=== PATIENT | male | born 1950 | race Hispanic/Latino ===

== ENCOUNTER 2023-10-13 18:22 | Inpatient (IN) | payer MEDICARE, OTHER ==
[2023-10-13 19:12] LABS: #Basophils 0.1 thou/uL (0.0-0.2); #Eosinphils 0.1 thou/uL (0.0-0.7); #Monocytes 0.8 thou/uL (0.11-0.59); #Neutrophils 6.1 thou/uL (1.40-6.50); %Basophils 0.6 % (0.0-1.0); %Eosinophils 1.2 % (0.0-10.0); %Lymphocytes 13.7 % (21.0-51.0); %Monocytes 9.4 % (0.0-10.0); %Neutrophils 74.9 % (42.0-75.0); Hematocrit 42.1 % (42.0-52.0); Hemoglobin 13.8 g/dL (14.0-18.0); Mean Corpuscular HGB CONC 32.8 g/dL (32.0-36.0); Mean Corpuscular Hemoglobin 31.5 pg (27.0-31.0); Mean Corpuscular Volume 96.1 fl (78.0-98.0); Mean Platelet Volume 10.4 fL (7.4-10.4); Platelet Count 298 10x3/uL (130-400); Red Blood Cell (RBC) Count 4.38 mill/uL (4.70-6.10); White Blood Cell (WBC) Count 8.2 10x3/uL (4.8-10.8)
[2023-10-13 19:36] LABS: ALT (SGPT) 22 U/L (8-55); AST (SGOT) 27 U/L (5-34); Albumin 4.3 g/dL (3.4-4.8); Alkaline Phosphatase 63 U/L (40-110); Anion Gap 11 mmol/L (10-20); BUN (Urea Nitrogen) 17 mg/dL (8.4-25.7); Bilirubin, Total 1.2 mg/dL (0.2-1.2); Calc. Creatinine Clearance 0 mL/min (70-130); Calcium 9.3 mg/dL (7.8-10.44); Carbon Dioxide 27 mmol/L (23-31); Chloride 104 mmol/L (98-107); Estimated GFR 62; Globulin 3.6 g/dL (2.4-3.5); Glucose 126 mg/dL (83-110); Potassium 4.2 mmol/L (3.5-5.1); Protein, Total 7.9 g/dL (5.8-8.1); Sodium 138 mmol/L (136-145)
[2023-10-13 21:47] LABS: Troponin I 0.135 ng/mL (< 0.028)
[2023-10-13] MEDS ORDERED: Aspirin Chewable 81 MG TAB ONE (22:24)
[2023-10-13] MEDS ORDERED: Acetaminophen 325 MG TAB PO PRN (22:45)
[2023-10-13] MEDS ORDERED: Acetaminophen 650 MG Suppository PR PRN (22:45)
[2023-10-13] MEDS ORDERED: Lisinopril 20 MG TAB ONE (23:10)
[2023-10-13] MEDS ORDERED: Furosemide 40 MG (4 mL) VIAL ONE (23:10)
[2023-10-13] MEDS: Furosemide 40 MG (4 mL) VIAL SLOW IVP SCH (23:14)
[2023-10-13] MEDS: Lisinopril 20 MG TAB PO SCH (23:14)
[2023-10-13] MEDS: Simvastatin 10 MG TAB PO SCH (23:43)
[2023-10-14 04:38] LABS: #Eosinphils 0.1 thou/uL (0.0-0.7); #Monocytes 0.6 thou/uL (0.11-0.59); #Neutrophils 4.6 thou/uL (1.40-6.50); %Basophils 0.6 % (0.0-1.0); %Eosinophils 1.4 % (0.0-10.0); %Lymphocytes 16.2 % (21.0-51.0); %Monocytes 9.5 % (0.0-10.0); Hematocrit 44.2 % (42.0-52.0); Hemoglobin 14.6 g/dL (14.0-18.0); Mean Corpuscular Hemoglobin 31.6 pg (27.0-31.0); Mean Corpuscular Volume 95.7 fl (78.0-98.0); Mean Platelet Volume 10.8 fL (7.4-10.4); Platelet Count 309 10x3/uL (130-400); RBC Distribution Width 15.2 % (11.5-14.5); Red Blood Cell (RBC) Count 4.62 mill/uL (4.70-6.10); White Blood Cell (WBC) Count 6.4 10x3/uL (4.8-10.8)
[2023-10-14 05:16] LABS: Anion Gap 12 mmol/L (10-20); BUN (Urea Nitrogen) 16 mg/dL (8.4-25.7); Calc. Creatinine Clearance 70 mL/min (70-130); Calcium 9.3 mg/dL (7.8-10.44); Carbon Dioxide 27 mmol/L (23-31); Chloride 103 mmol/L (98-107); Estimated GFR 62; Glucose 112 mg/dL (83-110); Magnesium 1.5 mg/dL (1.6-2.6); Potassium 4.2 mmol/L (3.5-5.1); Sodium 138 mmol/L (136-145)
[2023-10-14 05:20] LABS: Troponin I 0.132 ng/mL (< 0.028)
[2023-10-14 05:33] LABS: Thyroid Stimulating Hormone 6.0029 uIU/mL (0.35-4.94)
[2023-10-14] MEDS ORDERED: Furosemide 40 MG (4 mL) VIAL ONE (06:09)
[2023-10-14 09:19] LABS: Free T4 (Free Thyroxine) 1.26 ng/dL (0.70-1.48)
[2023-10-14 09:25] LABS: Troponin I 0.131 ng/mL (< 0.028)
[2023-10-14] MEDS: Aspirin 81 mg Enteric Coated Tablet PO SCH (11:22)
[2023-10-14] MEDS: Alogliptin 25 MG TAB PO SCH (11:22)
[2023-10-14] MEDS: Enoxaparin 40 MG (0.4 mL) SYRINGE SC SCH (11:23)
[2023-10-14] MEDS: Lisinopril 20 MG TAB PO SCH (11:23)
[2023-10-14] MEDS: Furosemide 40 MG (4 mL) VIAL SLOW IVP SCH (11:25)
[2023-10-14] MEDS: Magnesium 2 GM/50 ML(in water) 2 GM in Premix 1 BAG IVPB SCH (13:33)
[2023-10-14 17:46] VITALS: BMI 31.5
[2023-10-14] MEDS: Simvastatin 10 MG TAB PO SCH (20:18)
[2023-10-15 06:29] LABS: Anion Gap 15 mmol/L (10-20); BUN (Urea Nitrogen) 22 mg/dL (8.4-25.7); Calc. Creatinine Clearance 54 mL/min (70-130); Calcium 8.8 mg/dL (7.8-10.44); Carbon Dioxide 26 mmol/L (23-31); Cardiac Risk 2.8 (Less than 4.5); Chloride 99 mmol/L (98-107); Cholesterol 125 mg/dl (< 200 Desired); Estimated GFR 45; Glucose 113 mg/dL (83-110); HDL Cholesterol 44 mg/dL (>60 Neg Risk); LDL Cholesterol, Calculated 66 mg/dL; Magnesium 1.6 mg/dL (1.6-2.6); Potassium 3.4 mmol/L (3.5-5.1); Sodium 137 mmol/L (136-145); Triglycerides 74 mg/dL (Less than 150)
[2023-10-15] MEDS: Carvedilol 3.125 MG TAB PO SCH (08:56)
[2023-10-15] MEDS: Potassium Chloride 20 MEQ TAB PO SCH (08:57)
[2023-10-15] MEDS ORDERED: Communication Order-Pharmacy FS SCH (09:45)
[2023-10-15] MEDS: Atorvastatin Calcium 40 MG TAB PO SCH (20:54)
[2023-10-16 05:35] LABS: Hemoglobin A1c 7.1 % (4.0-6.0)
[2023-10-16] MEDS: Sodium Chloride 0.9% 1,000 ML IV SCH ×2 (05:51→08:20)
[2023-10-16] MEDS: Sacubitril 49 MG/Valsartan 51 MG TABLET PO SCH (06:09)
[2023-10-16] MEDS ORDERED: Nitroglycerin 50 MG/250 ML BOT 0 ML ONE (06:13)
[2023-10-16] MEDS ORDERED: Heparin 10,000 UNITS/ 10 ML VIAL ONE (06:13)
[2023-10-16] MEDS ORDERED: fentaNYL 50 mcg/mL 1 mL Vial ONE (06:13)
[2023-10-16] MEDS ORDERED: Midazolam HCl 2 mg/2 ml Vial ONE (06:13)
[2023-10-16 06:26] LABS: Anion Gap 17 mmol/L (10-20); BUN (Urea Nitrogen) 27 mg/dL (8.4-25.7); Calc. Creatinine Clearance 59 mL/min (70-130); Calcium 9.4 mg/dL (7.8-10.44); Carbon Dioxide 26 mmol/L (23-31); Chloride 100 mmol/L (98-107); Estimated GFR 50; Glucose 128 mg/dL (83-110); Potassium 4.7 mmol/L (3.5-5.1); Sodium 138 mmol/L (136-145)
[2023-10-16] MEDS ORDERED: Protamine Sulfate 50 MG/5 ML VIAL ONE (07:32)
[2023-10-16] MEDS ORDERED: Nitroglycerin 0.4 MG TAB (25 Tab Bottle) SL PRN (07:38)
[2023-10-16] MEDS ORDERED: Acetaminophen/Codeine 30-300mg Tablet PO PRN ×2 (07:38)
[2023-10-16] MEDS ORDERED: Sodium Chloride 0.9% 200 ML IV PRN (07:38)
[2023-10-16] MEDS ORDERED: Iopamidol 370 76% 100 ML VIAL ONE (08:23)
[2023-10-16] MEDS ORDERED: Sacubitril 49 MG/Valsartan 51 MG TABLET PO SCH (09:00)
[2023-10-16] MEDS ORDERED: Furosemide 40 MG (4 mL) VIAL SLOW IVP SCH (09:00)
[2023-10-16] MEDS: Nitroglycerin 2% Ointment 1 INCH/1 GM Packet TOP SCH (09:27)
[2023-10-16] MEDS ORDERED: Dextrose 50% Abboject 50 ML SYRINGE SLOW IVP PRN (12:33)
[2023-10-16] MEDS ORDERED: Dextrose 5% in Water 1,000 ML IV PRN (12:33)
[2023-10-16] MEDS ORDERED: Glucagon 1 MG/ML KIT IM PRN (12:33)
[2023-10-16] MEDS: HumaLOG 300 UNITS/3 ML VIAL SC PRN (12:50)
[2023-10-17 04:25] VITALS: TEMP 97.5
[2023-10-17 05:23] LABS: Anion Gap 10 mmol/L (10-20); BUN (Urea Nitrogen) 29 mg/dL (8.4-25.7); Calc. Creatinine Clearance 63 mL/min (70-130); Calcium 8.3 mg/dL (7.8-10.44); Carbon Dioxide 26 mmol/L (23-31); Chloride 104 mmol/L (98-107); Estimated GFR 52; Glucose 125 mg/dL (83-110); Potassium 3.9 mmol/L (3.5-5.1); Sodium 136 mmol/L (136-145)
[2023-10-17 08:00] VITALS: BP 137/81
[2023-10-17] MEDS: Empagliflozin 10 MG TAB PO SCH (08:07)
[2023-10-17] MEDS: Enoxaparin 40 MG (0.4 mL) SYRINGE SC SCH (08:07)
== END 2023-10-17 10:35 | disposition home or self-care (01) | DRG 280 ==
LOC: SUATTDRO 18:22 → ERS 18:22 → ERHOLD 22:54 → 2SW 10-14 11:01 → OBSVTOIN 10-14 12:38
PROVIDERS: ADMIT Family Medicine; ATTEND Nurse Practitioner Family
PROC: 4A023N7 Measurement of Cardiac Sampling and Pressure, Left Heart, Percutaneous Approach (ICD-10-PCS; principal; 2023-10-16)
PROC: B2111ZZ Fluoroscopy of Multiple Coronary Arteries using Low Osmolar Contrast (ICD-10-PCS; 2023-10-16)
PROC: B2151ZZ Fluoroscopy of Left Heart using Low Osmolar Contrast (ICD-10-PCS; 2023-10-16)
DX: I11.0 Hypertensive heart disease with heart failure (principal); I21.A1 Myocardial infarction type 2; I50.23 Acute on chronic systolic (congestive) heart failure; N17.9 Acute kidney failure, unspecified; E11.9 Type 2 diabetes mellitus without complications; E78.00 Pure hypercholesterolemia, unspecified; Z79.899 Other long term (current) drug therapy; Z79.84 Long term (current) use of oral hypoglycemic drugs; Z79.82 Long term (current) use of aspirin; Z82.49 Family history of ischemic heart disease and other diseases of the circulatory system; I25.10 Atherosclerotic heart disease of native coronary artery without angina pectoris; E87.6 Hypokalemia; G47.33 Obstructive sleep apnea (adult) (pediatric); E03.8 Other specified hypothyroidism
CPT/HCPCS: 36415; 36416; 71046; 80048; 80053; 80061; 83036; 83735; 83880; 84439; 84443; 84484; 85025; 85347; 93005; 93010; 93306; 93454; 93455; 93798; 94760; 96372; 96374; 96376; 99152; 99153; C1769; G0378; J1644; J1650; J1940; J2250; J2720; J3010; J3475; J7050; Q9967

== ENCOUNTER 2023-11-04 08:30 | Inpatient (IN) | payer MEDICARE ==
[2023-11-04 08:51] VITALS: BMI 28.8
[2023-11-04 10:23] LABS: Hematocrit 49.6 % (38.8-50.0); Mean Corpuscular HGB CONC 32.3 g/dL (32.0-36.0); Mean Corpuscular Hemoglobin 30.4 pg (27.0-33.0); Mean Corpuscular Volume 94.1 fl (81.2-95.1); Mean Platelet Volume 11.3 fl (7.4-10.4); Platelet Count 303 10x3/uL (150-450); RBC Distribution Width 14.6 % (11.5-14.5); Red Blood Cell (RBC) Count 5.27 10x6/uL (4.32-5.72); White Blood Cell (WBC) Count 7.6 10x3/uL (3.5-10.5)
[2023-11-04 10:39] LABS: Anion Gap 16 mmol/L (10-20); BUN (Urea Nitrogen) 35 mg/dL (8.4-25.7); Calc. Creatinine Clearance 0 mL/min (70-130); Calcium 9.2 mg/dL (7.8-10.44); Carbon Dioxide 24 mmol/L (23-31); Chloride 102 mmol/L (98-107); Estimated GFR 53; Glucose 125 mg/dL (83-110); Sodium 137 mmol/L (136-145)
[2023-11-06] MEDS ORDERED: CEFAZOLIN 2 GM VIAL ONE (06:28)
[2023-11-06] MEDS ORDERED: Sodium Chloride 0.9% 100 ML ONE (06:28)
[2023-11-06] MEDS ORDERED: PHENYLEPHRINE-NS 100 MCG/ML 10 ML SYRINGE ONE (06:34)
[2023-11-06] MEDS ORDERED: Albumin 5% 500 ML ONE (06:35)
[2023-11-06] MEDS ORDERED: Heparin 10,000 UNITS/1 ML VIAL 30,000 UNITS in Sodium Chloride 0.9% 1,000 ML FS SCH (06:45)
[2023-11-06] MEDS ORDERED: Rocuronium Bromide 10 MG/ML (10ML VIAL) ONE (07:01)
[2023-11-06] MEDS ORDERED: PROPOFOL 20 ML ONE (07:01)
[2023-11-06] MEDS ORDERED: ePHEDrine Sulfate 50 MG/10 ML VIAL ONE (07:01)
[2023-11-06] MEDS ORDERED: Esmolol 100 MG/10 ML VIAL ONE (07:01)
[2023-11-06] MEDS ORDERED: Lidocaine 2% PF 5 ML VIAL ONE (07:01)
[2023-11-06] MEDS ORDERED: Norepinephrine 4 MG/4 ML VIAL ONE ×2 (07:01→07:02)
[2023-11-06] MEDS ORDERED: Lidocaine 2% PF 100 mg/5 ml Syringe ONE ×2 (07:01→07:41)
[2023-11-06] MEDS ORDERED: CEFAZOLIN 1 GM VIAL ONE (07:01)
[2023-11-06] MEDS ORDERED: Fentanyl 250 MCG/5 ML VIAL ONE (07:02)
[2023-11-06] MEDS ORDERED: Midazolam HCl 2 mg/2 ml Vial ONE (07:02)
[2023-11-06] MEDS ORDERED: Heparin 30,000 units/30 ml VIAL ONE (07:41)
[2023-11-06] MEDS ORDERED: Magnesium 5 GM/10 ML VIAL ONE (07:41)
[2023-11-06] MEDS ORDERED: Protamine Sulfate 250 MG/25 ML VIAL ONE (07:41)
[2023-11-06] MEDS ORDERED: Heparin 5,000 UNITS/ML VIAL ONE (07:41)
[2023-11-06] MEDS ORDERED: Sodium Bicarb 50 mEq/50 ML VIAL ONE (07:41)
[2023-11-06] MEDS ORDERED: Aminocaproic Acid 5 GM/20 ML VIAL ONE (07:41)
[2023-11-06] MEDS ORDERED: Papaverine 60 MG/2 ML VIAL ONE (07:41)
[2023-11-06] MEDS ORDERED: Cardioplegic Soln 1,000 ML BAG ONE (07:41)
[2023-11-06] MEDS ORDERED: Thrombin 5000 UNITS/5 ML VIAL ONE (07:41)
[2023-11-06] MEDS ORDERED: Vancomycin 1 GM VIAL ONE (07:41)
[2023-11-06] MEDS ORDERED: Mannitol 12.5 GM/50 ML ONE (07:41)
[2023-11-06] MEDS ORDERED: Potassium Chloride 60 mEq (30 mL) VIAL ONE (07:41)
[2023-11-06] MEDS ORDERED: Calcium Chloride 1 GM/10 ML Abboject SYRINGE ONE (07:41)
[2023-11-06] MEDS ORDERED: Sevoflurane 250 ML INH ANEST BOTTLE ONE (07:57)
[2023-11-06] MEDS ORDERED: Milrinone 10 MG/10 ML VIAL ONE (08:52)
[2023-11-06] MEDS ORDERED: Sodium Chloride 0.9% 250 ML 250 ML ONE (09:32)
[2023-11-06] MEDS ORDERED: Ondansetron PF 4 MG/2 ML Vial IVP PRN (10:42)
[2023-11-06] MEDS ORDERED: fentaNYL 50 mcg/mL 1 mL Vial SLOW IVP PRN (10:42)
[2023-11-06] MEDS ORDERED: Albumin 5% 12.5 GM (250 mL) BOT IVPB PRN ×2 (10:42)
[2023-11-06] MEDS ORDERED: NOREPINEPHRINE 8 MG/250 ML-D5W 250 ML IVPB PRN (10:42)
[2023-11-06] MEDS ORDERED: Promethazine HCl 25 MG/ML VIAL IM PRN (10:42)
[2023-11-06] MEDS ORDERED: Bisacodyl 10 MG SUPP PR PRN (10:42)
[2023-11-06] MEDS ORDERED: Bisacodyl 5 MG TAB PO PRN (10:42)
[2023-11-06] MEDS ORDERED: Hetastarch 6% 500 ML 500 ML IVPB PRN (10:42)
[2023-11-06] MEDS ORDERED: Guaifenesin DM 100-10/5 ML UDCUP PO PRN (10:42)
[2023-11-06] MEDS ORDERED: HYDROcodone/Acetaminophen 5/325 mg Tablet PO PRN (10:42)
[2023-11-06] MEDS ORDERED: Morphine 2 MG/ML VIAL SLOW IVP PRN (10:42)
[2023-11-06] MEDS ORDERED: Ipratropium/Albuterol 3 ML NEB NEB PRN (10:42)
[2023-11-06] MEDS ORDERED: Potassium Chloride 20 MEQ (100 mL) BAG IVPB PRN (10:42)
[2023-11-06] MEDS ORDERED: Nitroglycerin 50 MG/250 ML BOT 250 ML IVPB PRN (10:42)
[2023-11-06] MEDS ORDERED: DOPamine 400 MG/D5W 250 ML 250 ML IVPB PRN (10:42)
[2023-11-06] MEDS ORDERED: niCARdipine 25 MG in Sodium Chloride 0.9% 250 ML 250 ML IVPB PRN (10:42)
[2023-11-06] MEDS ORDERED: Mag-Al 1200 mg/1200 mg/30 ML UDCUP PO PRN (10:42)
[2023-11-06] MEDS ORDERED: Dextrose 5% in Water 1,000 ML IV PRN (10:45)
[2023-11-06] MEDS ORDERED: Glucagon 1 MG/ML KIT SC PRN (10:45)
[2023-11-06] MEDS ORDERED: Dextrose 50% Abboject 50 ML SYRINGE SLOW IVP PRN (10:45)
[2023-11-06] MEDS: HUMULIN R 100 UNITS in Sodium Chloride 0.9% 100 ML IVPB SCH (11:12)
[2023-11-06 11:18] LABS: #Basophils 0.1 thou/uL (0.0-0.2); #Eosinphils 0.2 thou/uL (0.0-0.7); #Monocytes 1.3 thou/uL (0.11-0.59); #Neutrophils 17.9 thou/uL (1.40-6.50); %Basophils 0.4 % (0.0-1.0); %Eosinophils 0.9 % (0.0-10.0); %Lymphocytes 7.8 % (21.0-51.0); %Neutrophils 84.2 % (42.0-75.0); Hematocrit 39.6 % (42.0-52.0); Hemoglobin 13.3 g/dL (14.0-18.0); Mean Corpuscular HGB CONC 33.6 g/dL (32.0-36.0); Mean Corpuscular Hemoglobin 31.6 pg (27.0-31.0); Mean Corpuscular Volume 94.1 fl (78.0-98.0); Platelet Count 202 10x3/uL (130-400); RBC Distribution Width 14.5 % (11.5-14.5); Red Blood Cell (RBC) Count 4.21 mill/uL (4.70-6.10); White Blood Cell (WBC) Count 21.2 10x3/uL (4.8-10.8)
[2023-11-06] MEDS: Post-Op Insulin Drip Protocol IVPB ONE (11:22)
[2023-11-06] MEDS: Lactated Ringer's 1,000 ML IV SCH (11:23)
[2023-11-06] MEDS: NOREPINEPHRINE 8 MG/250 ML-D5W 250 ML ONE (11:26)
[2023-11-06 11:33] LABS: Anion Gap 11 mmol/L (10-20); BUN (Urea Nitrogen) 26 mg/dL (8.4-25.7); Calc. Creatinine Clearance 76 mL/min (70-130); Calcium 8.1 mg/dL (7.8-10.44); Carbon Dioxide 22 mmol/L (23-31); Chloride 109 mmol/L (98-107); Estimated GFR 73; Glucose 201 mg/dL (83-110); Potassium 5.2 mmol/L (3.5-5.1); Sodium 137 mmol/L (136-145)
[2023-11-06 11:34] LABS: INR-International Normal Ratio 1.4; Prothrombin Time 17.2 sec (12.0-14.7)
[2023-11-06 11:35] LABS: PTT 33.2 sec (22.9-36.1)
[2023-11-06 11:37] LABS: Actual Bicarbonate (HCO3a) 19.2 mEq/L (22-28); Base Excess (BEa) -5.1 mEq/L (-2.0 to +3.0); CO2 Tension 33.9 mmHg (35.0-45.0); Calcium, Ionized (arterial) 1.12 mmol/L (1.12-1.30); Carboxyhemoglobin (COHb) 0.9 gm% (0.0-3.0); Hematocrit-ABG 42 % (42.0-52.0); Hemoglobin (Hb) 14.2 g/dL (14.0-18.0); O2 Tension (PaO2), arterial 144.4 mmHg (> 70.0); Potassium - ABG Lab 4.49 mmol/L (3.70-5.30); pH, Arterial 7.371 (7.35-7.45)
[2023-11-06 11:38] LABS: ALV-art Gradient 169.725 mmHg (0-20); Puncture Site ALINE
[2023-11-06] MEDS: CEFAZOLIN 2 GM in Sodium Chloride 0.9% 100 ML IVPB SCH (13:34)
[2023-11-06 16:35] LABS: Hematocrit 41.5 % (42.0-52.0); Hemoglobin 13.9 g/dL (14.0-18.0)
[2023-11-06 16:41] LABS: ALV-art Gradient 56.625 mmHg (0-20); Actual Bicarbonate (HCO3a) 19.6 mEq/L (22-28); Base Excess (BEa) -5.5 mEq/L (-2.0 to +3.0); CO2 Tension 37.5 mmHg (35.0-45.0); Calcium, Ionized (arterial) 1.15 mmol/L (1.12-1.30); Carboxyhemoglobin (COHb) 1.1 gm% (0.0-3.0); Hematocrit-ABG 42 % (42.0-52.0); Hemoglobin (Hb) 14.4 g/dL (14.0-18.0); O2 Tension (PaO2), arterial 181.7 mmHg (> 70.0); Potassium - ABG Lab 4.42 mmol/L (3.70-5.30); Puncture Site ALINE; pH, Arterial 7.337 (7.35-7.45)
[2023-11-06 16:58] LABS: Potassium 4.4 mmol/L (3.5-5.1)
[2023-11-06] MEDS: Famotidine/PF 20 mg/2ml Vial SLOW IVP SCH (21:08)
[2023-11-06] MEDS: HYDROcodone/Acetaminophen 5/325 mg Tablet PO PRN (23:18)
[2023-11-06] MEDS: hydrALAZINE 20 MG/ML VIAL SLOW IVP PRN (23:20)
[2023-11-07] MEDS: fentaNYL 50 mcg/mL 1 mL Vial SLOW IVP PRN (02:11)
[2023-11-07 04:46] LABS: #Basophils 0.1 thou/uL (0.0-0.2); #Monocytes 1.3 thou/uL (0.11-0.59); %Basophils 0.4 % (0.0-1.0); %Eosinophils 0.1 % (0.0-10.0); %Lymphocytes 8.6 % (21.0-51.0); %Monocytes 9.8 % (0.0-10.0); %Neutrophils 80.8 % (42.0-75.0); Hematocrit 40.7 % (42.0-52.0); Hemoglobin 13.4 g/dL (14.0-18.0); Mean Corpuscular HGB CONC 32.9 g/dL (32.0-36.0); Mean Corpuscular Hemoglobin 30.9 pg (27.0-31.0); Mean Corpuscular Volume 93.8 fl (78.0-98.0); Mean Platelet Volume 11.6 fL (7.4-10.4); Platelet Count 179 10x3/uL (130-400); RBC Distribution Width 14.7 % (11.5-14.5); Red Blood Cell (RBC) Count 4.34 mill/uL (4.70-6.10); White Blood Cell (WBC) Count 13.6 10x3/uL (4.8-10.8)
[2023-11-07 05:09] LABS: Anion Gap 15 mmol/L (10-20); BUN (Urea Nitrogen) 23 mg/dL (8.4-25.7); Calc. Creatinine Clearance 80 mL/min (70-130); Calcium 8.2 mg/dL (7.8-10.44); Carbon Dioxide 20 mmol/L (23-31); Chloride 106 mmol/L (98-107); Estimated GFR 78; Glucose 108 mg/dL (83-110); Potassium 4.3 mmol/L (3.5-5.1); Sodium 137 mmol/L (136-145)
[2023-11-07] MEDS: Aspirin 325 MG TAB PO SCH (09:30)
[2023-11-07] MEDS: Polyethylene Glycol 3350 17 GM Packet PO SCH (09:31)
[2023-11-07] MEDS: Acetaminophen 325 MG TAB PO PRN (10:34)
[2023-11-07] MEDS ORDERED: Insulin Glargine 30 UNITS/0.3 ML VIAL SC PRN (10:45)
[2023-11-07] MEDS: Furosemide 40 MG TAB PO SCH (11:24)
[2023-11-07] MEDS: Insulin Regular 300 UNITS/3 ML VIAL SC PRN (12:17)
[2023-11-07] MEDS: Carvedilol 3.125 MG TAB PO SCH (16:54)
[2023-11-07] MEDS: Atorvastatin Calcium 40 MG TAB PO SCH (21:26)
[2023-11-08] MEDS: Furosemide 40 MG TAB PO SCH (08:22)
[2023-11-09] MEDS: traMADol HCl 50 MG TAB PO PRN (03:13)
[2023-11-09] MEDS: FLU VACC QS2023(65UP)/MF59C/PF 60 MCG/0.5 ML SYRINGE IM ONE (08:58)
[2023-11-09] MEDS: Sacubitril 24MG/Valsartan 26 MG TAB PO SCH (11:58)
[2023-11-09 12:37] VITALS: BP 105/54; TEMP 98.1
[2023-11-09] MEDS ORDERED: Sacubitril 24MG/Valsartan 26 MG TAB PO SCH (21:00)
[2023-11-10 11:51] LABS: Analyzer IN Cardio OR; Base Excess (BEa) -1.8 mEq/L (-2.0 to +3.0); CO2 Tension 30.9 mmHg (35.0-45.0); Calcium, Ionized (arterial) 1.11 mmol/L (1.12-1.30); Carboxyhemoglobin (COHb) 0.9 gm% (0.0-3.0); Hematocrit-ABG 44 % (42.0-52.0); Hemoglobin (Hb) 15.1 g/dL (14.0-18.0); O2 Tension (PaO2), arterial 406.1 mmHg (> 70.0); Potassium - ABG Lab 4.43 mmol/L (3.70-5.30); pH, Arterial 7.451 (7.35-7.45)
[2023-11-10 11:54] LABS: Actual Bicarbonate (HCO3a) 21.1 mEq/L (22-28); Analyzer IN Cardio OR; CO2 Tension 34.9 mmHg (35.0-45.0); Carboxyhemoglobin (COHb) 0.7 gm% (0.0-3.0); Hematocrit-ABG 44 % (42.0-52.0); O2 Tension (PaO2), arterial 487.8 mmHg (> 70.0); pH, Arterial 7.399 (7.35-7.45)
[2023-11-10 11:54] LABS: Actual Bicarbonate (HCO3a) 23.5 mEq/L (22-28); Analyzer IN Cardio OR; Base Excess (BEa) -1.9 mEq/L (-2.0 to +3.0); CO2 Tension 42.6 mmHg (35.0-45.0); Calcium, Ionized (arterial) 0.99 mmol/L (1.12-1.30); Carboxyhemoglobin (COHb) 0.2 gm% (0.0-3.0); Hematocrit-ABG 36 % (42.0-52.0); Hemoglobin (Hb) 12.3 g/dL (14.0-18.0); O2 Tension (PaO2), arterial 371.4 mmHg (> 70.0)
[2023-11-10 11:55] LABS: Puncture Site Arterial Line
[2023-11-10 11:55] LABS: Actual Bicarbonate (HCO3a) 19.8 mEq/L (22-28); Analyzer IN Cardio OR; Base Excess (BEa) -4.4 mEq/L (-2.0 to +3.0); CO2 Tension 33.1 mmHg (35.0-45.0); Calcium, Ionized (arterial) 1.15 mmol/L (1.12-1.30); Carboxyhemoglobin (COHb) 0.3 gm% (0.0-3.0); Hematocrit-ABG 31 % (42.0-52.0); Hemoglobin (Hb) 10.4 g/dL (14.0-18.0); O2 Tension (PaO2), arterial 446.6 mmHg (> 70.0); Potassium - ABG Lab 5.21 mmol/L (3.70-5.30); pH, Arterial 7.394 (7.35-7.45)
[2023-11-10 11:55] LABS: Actual Bicarbonate (HCO3a) 23.2 mEq/L (22-28); Analyzer IN Cardio OR; Base Excess (BEa) -2.9 mEq/L (-2.0 to +3.0); CO2 Tension 45.8 mmHg (35.0-45.0); Carboxyhemoglobin (COHb) 0.3 gm% (0.0-3.0); Hematocrit-ABG 33 % (42.0-52.0); Hemoglobin (Hb) 11.2 g/dL (14.0-18.0); O2 Tension (PaO2), arterial 293.8 mmHg (> 70.0); Potassium - ABG Lab 5.68 mmol/L (3.70-5.30); pH, Arterial 7.322 (7.35-7.45)
[2023-11-10 11:56] LABS: Puncture Site Arterial Line
[2023-11-10 11:56] LABS: Puncture Site Arterial Line
[2023-11-10 11:56] LABS: Puncture Site Arterial Line
[2023-11-10 11:57] LABS: Potassium - ABG Lab 6.15 mmol/L (3.70-5.30)
[2023-11-10 11:58] LABS: Puncture Site Arterial Line
== END 2023-11-09 15:29 | disposition home or self-care (01) | DRG 236 ==
LOC: SURG A 11-06 05:38 → CCU 11-06 10:34 → 2NO 11-07 15:28
PROVIDERS: ADMIT Thoracic Surgery (Cardiothoracic Vascular Surgery); ATTEND Thoracic Surgery (Cardiothoracic Vascular Surgery)
PROC: 02100Z9 Bypass Coronary Artery, One Artery from Left Internal Mammary, Open Approach (ICD-10-PCS; principal; 2023-11-06)
PROC: 021109W Bypass Coronary Artery, Two Arteries from Aorta with Autologous Venous Tissue, Open Approach (ICD-10-PCS; 2023-11-06)
PROC: 06BQ3ZZ Excision of Left Saphenous Vein, Percutaneous Approach (ICD-10-PCS; 2023-11-06)
PROC: 02L70CK Occlusion of Left Atrial Appendage with Extraluminal Device, Open Approach (ICD-10-PCS; 2023-11-06)
PROC: 5A1221Z Performance of Cardiac Output, Continuous (ICD-10-PCS; 2023-11-06)
PROC: 30233J1 Transfusion of Nonautologous Serum Albumin into Peripheral Vein, Percutaneous Approach (ICD-10-PCS; 2023-11-06)
PROC: 3E033XZ Introduction of Vasopressor into Peripheral Vein, Percutaneous Approach (ICD-10-PCS; 2023-11-06)
PROC: 4A133R1 Monitoring of Arterial Saturation, Peripheral, Percutaneous Approach (ICD-10-PCS; 2023-11-06)
DX: I25.10 Atherosclerotic heart disease of native coronary artery without angina pectoris (principal); I47.20 Ventricular tachycardia, unspecified
CPT/HCPCS: 36416; 36430; 71045; 80048; 82805; 82947; 85025; 85027; 85610; 85730; 86850; 86900; 86901; 93005; 93010; 93798; 94002; 94150; A4311; C1751; J0360; J0690; J1642; J1644; J1815; J2001; J2150; J2250; J2260; J2440; J2704; J2720; J3010; J3370; J3475; J3480; J3490; J7050; J7120; P9045; S0017; S0028

== ENCOUNTER 2023-11-09 21:41 | Inpatient (IN) | payer MEDICARE ==
[2023-11-09 23:47] LABS: #Eosinphils 0.1 thou/uL (0.0-0.7); #Monocytes 1.2 thou/uL (0.11-0.59); #Neutrophils 7.5 thou/uL (1.40-6.50); %Basophils 0.2 % (0.0-1.0); %Eosinophils 1.1 % (0.0-10.0); %Lymphocytes 10.1 % (21.0-51.0); %Monocytes 11.8 % (0.0-10.0); %Neutrophils 76.6 % (42.0-75.0); Hematocrit 36.3 % (42.0-52.0); Hemoglobin 12.1 g/dL (14.0-18.0); Mean Corpuscular HGB CONC 33.3 g/dL (32.0-36.0); Mean Corpuscular Hemoglobin 30.8 pg (27.0-31.0); Mean Corpuscular Volume 92.4 fl (78.0-98.0); Mean Platelet Volume 11.1 fL (7.4-10.4); Platelet Count 175 10x3/uL (130-400); RBC Distribution Width 15.2 % (11.5-14.5); Red Blood Cell (RBC) Count 3.93 mill/uL (4.70-6.10); White Blood Cell (WBC) Count 9.8 10x3/uL (4.8-10.8)
[2023-11-10 00:14] LABS: ALT (SGPT) 33 U/L (8-55); AST (SGOT) 49 U/L (5-34); Albumin 3.5 g/dL (3.4-4.8); Alkaline Phosphatase 77 U/L (40-110); Anion Gap 13 mmol/L (10-20); BUN (Urea Nitrogen) 34 mg/dL (8.4-25.7); Bilirubin, Total 0.7 mg/dL (0.2-1.2); Calc. Creatinine Clearance 0 mL/min (70-130); Calcium 8.4 mg/dL (7.8-10.44); Carbon Dioxide 23 mmol/L (23-31); Chloride 99 mmol/L (98-107); Estimated GFR 44; Globulin 3.4 g/dL (2.4-3.5); Glucose 191 mg/dL (83-110); Magnesium 2.2 mg/dL (1.6-2.6); Potassium 4.3 mmol/L (3.5-5.1); Protein, Total 6.9 g/dL (5.8-8.1); Sodium 131 mmol/L (136-145)
[2023-11-10 00:28] LABS: Critical Call Chem Troponin I NUR.MB20 @0027; Troponin I 1.113 ng/mL (< 0.028)
[2023-11-10] MEDS ORDERED: Acetaminophen 325 MG TAB PO PRN (01:15)
[2023-11-10] MEDS ORDERED: Ondansetron ODT 4 MG TAB SL PRN (01:15)
[2023-11-10] MEDS ORDERED: Ondansetron PF 4 MG/2 ML Vial IVP PRN (01:15)
[2023-11-10] MEDS ORDERED: Dextrose 5% in Water 1,000 ML IV PRN (01:19)
[2023-11-10] MEDS ORDERED: HumaLOG 300 UNITS/3 ML VIAL SC PRN (01:19)
[2023-11-10] MEDS ORDERED: Dextrose 50% Abboject 50 ML SYRINGE SLOW IVP PRN (01:19)
[2023-11-10] MEDS ORDERED: Glucagon 1 MG/ML KIT IM PRN (01:19)
[2023-11-10] MEDS ORDERED: Enoxaparin 100 MG (1 mL) SYRINGE ONE (03:48)
[2023-11-10 03:49] LABS: #Eosinphils 0.1 thou/uL (0.0-0.7); #Monocytes 1.3 thou/uL (0.11-0.59); #Neutrophils 7.6 thou/uL (1.40-6.50); %Basophils 0.2 % (0.0-1.0); %Monocytes 12.6 % (0.0-10.0); %Neutrophils 76.8 % (42.0-75.0); Hematocrit 35.9 % (42.0-52.0); Hemoglobin 11.9 g/dL (14.0-18.0); Mean Corpuscular HGB CONC 33.1 g/dL (32.0-36.0); Mean Corpuscular Hemoglobin 31.3 pg (27.0-31.0); Mean Corpuscular Volume 94.5 fl (78.0-98.0); Mean Platelet Volume 11.4 fL (7.4-10.4); Platelet Count 181 10x3/uL (130-400); RBC Distribution Width 15.5 % (11.5-14.5); White Blood Cell (WBC) Count 9.9 10x3/uL (4.8-10.8)
[2023-11-10] MEDS: Enoxaparin 100 MG (1 mL) SYRINGE SC SCH (03:52)
[2023-11-10 04:09] LABS: Anion Gap 15 mmol/L (10-20); BUN (Urea Nitrogen) 34 mg/dL (8.4-25.7); Calc. Creatinine Clearance 0 mL/min (70-130); Calcium 8.3 mg/dL (7.8-10.44); Carbon Dioxide 21 mmol/L (23-31); Chloride 100 mmol/L (98-107); Estimated GFR 44; Glucose 180 mg/dL (83-110); Potassium 4.2 mmol/L (3.5-5.1); Sodium 132 mmol/L (136-145)
[2023-11-10 04:20] LABS: Critical Call Chem Troponin I NUR.MB20 @0420; Troponin I 1.248 ng/mL (< 0.028)
[2023-11-10 04:28] VITALS: BMI 31.7
[2023-11-10] MEDS ORDERED: DOBUTamine 500 mg/250 ml 250 ML IVPB SCH (05:15)
[2023-11-10] MEDS ORDERED: DOBUTamine 500 mg/250 ml 250 ML ONE (05:29)
[2023-11-10 06:26] LABS: Critical Call Chem Troponin I RESULT DECREASING; Troponin I 1.036 ng/mL (< 0.028)
[2023-11-10] MEDS ORDERED: Aspirin Chewable 81 MG TAB ONE (09:15)
[2023-11-10] MEDS: Amiodarone 150 MG in Dextrose 5% in Water 100 ML IVPB SCH (11:00)
[2023-11-10] MEDS: Empagliflozin 10 MG TAB PO SCH (11:03)
[2023-11-10] MEDS: Aspirin Chewable 81 MG TAB PO SCH (11:03)
[2023-11-10] MEDS: Amiodarone 450 MG in Dextrose 5% in Water 250 ML IVPB SCH (11:17)
[2023-11-10] MEDS: HumaLOG 300 UNITS/3 ML VIAL SC PRN (13:17)
[2023-11-10] MEDS ORDERED: traMADol HCl 50 MG TAB ONE (13:19)
[2023-11-10] MEDS: traMADol HCl 50 MG TAB PO PRN (13:20)
[2023-11-10] MEDS ORDERED: Polyethylene Glycol 3350 17 GM Packet PO PRN (14:28)
[2023-11-10] MEDS ORDERED: Enoxaparin 100 MG (1 mL) SYRINGE SC SCH (16:00)
[2023-11-10] MEDS ORDERED: Furosemide 20 MG (2 mL) VIAL ONE (17:21)
[2023-11-10] MEDS: Furosemide 20 MG (2 mL) VIAL SLOW IVP SCH (17:40)
[2023-11-10] MEDS: Atorvastatin Calcium 40 MG TAB PO SCH (21:17)
[2023-11-11 01:21] LABS: Anion Gap 12 mmol/L (10-20); BUN (Urea Nitrogen) 42 mg/dL (8.4-25.7); Calc. Creatinine Clearance 51 mL/min (70-130); Calcium 8.4 mg/dL (7.8-10.44); Carbon Dioxide 24 mmol/L (23-31); Chloride 96 mmol/L (98-107); Estimated GFR 42; Glucose 178 mg/dL (83-110); Magnesium 2.2 mg/dL (1.6-2.6); Potassium 4.4 mmol/L (3.5-5.1); Sodium 128 mmol/L (136-145)
[2023-11-11] MEDS: Ondansetron PF 4 MG/2 ML Vial IVP SCH (01:29)
[2023-11-11 08:39] VITALS: TEMP 97.8
[2023-11-11] MEDS: Amiodarone 200 MG TAB PO SCH (09:33)
[2023-11-11 12:02] VITALS: BP 123/61
[2023-11-11] MEDS: Albumin 25% 25 GM (100 mL) BOT IVPB SCH (12:50)
[2023-11-11] MEDS ORDERED: Amiodarone 200 MG TAB PO SCH (21:00)
== END 2023-11-11 16:01 | disposition home or self-care (01) | DRG 291 ==
LOC: ERS 21:41 → ERHOLD 11-10 00:57 → 2SW 11-10 01:45 → OBSVTOIN 11-11 11:03
PROVIDERS: ADMIT Student in an Organized Health Care Education/Training Program; ATTEND Internal Medicine
DX: I11.0 Hypertensive heart disease with heart failure (principal); I50.23 Acute on chronic systolic (congestive) heart failure; N17.9 Acute kidney failure, unspecified; E87.1 Hypo-osmolality and hyponatremia; I95.9 Hypotension, unspecified; E11.9 Type 2 diabetes mellitus without complications; I25.5 Ischemic cardiomyopathy; I48.91 Unspecified atrial fibrillation; E78.00 Pure hypercholesterolemia, unspecified; I25.10 Atherosclerotic heart disease of native coronary artery without angina pectoris; Z95.1 Presence of aortocoronary bypass graft; Z79.82 Long term (current) use of aspirin; Z79.84 Long term (current) use of oral hypoglycemic drugs; Z79.891 Long term (current) use of opiate analgesic
CPT/HCPCS: 36415; 36416; 71045; 80048; 80053; 83735; 83880; 84484; 85025; 93005; 93010; 96372; 96374; 96375; 96376; G0378; J0282; J1250; J1650; J1940; J2405; J7070; P9047

== ENCOUNTER 2024-02-16 11:03 | Emergency (ER) | payer MEDICARE ==
[2024-02-16] MEDS ORDERED: Dexamethasone 10 MG/ML VIAL ONE (12:28)
[2024-02-16] MEDS ORDERED: Dexamethasone 10 MG/ML VIAL IM SCH (12:45)
[2024-02-16] MEDS ORDERED: Lidocaine 4% Patch TD SCH (13:15)
[2024-02-16] MEDS ORDERED: Transdermal Patch Removal TOP SCH (21:00)
== END 2024-02-16 12:37 | disposition home or self-care (01) ==
LOC: ERS 11:03
DX: M54.42 Lumbago with sciatica, left side (principal); I10 Essential (primary) hypertension; E11.9 Type 2 diabetes mellitus without complications
CPT/HCPCS: 96372; 99282; J1100